=== PATIENT | male | born 2000 ===

== ENCOUNTER 2022-01-17 19:30 | Emergency (ER) | payer OTHER ==
[~2022-01-17] VITALS: Ht 162.6 cm; Wt 59.0 kg
== END 2022-01-17 21:21 | disposition home or self-care (01) ==
LOC: ER 19:30
DX: S01.81XA Laceration without foreign body of other part of head, initial encounter (principal); X58.XXXA Exposure to other specified factors, initial encounter; Y93.68 Activity, volleyball (beach) (court); Y92.9 Unspecified place or not applicable; Y99.9 Unspecified external cause status